=== PATIENT | female | born 1970 | race Caucasian/White ===

== ENCOUNTER → 2019-06-08 | Outpatient (CLI) | payer BC ==
[2019-06-08 10:20] LABS: HEMATOCRIT 41.5 % (36.0-47.0); HEMOGLOBIN 14.2 g/dL (12.0-15.5); MEAN CORPUSCULAR HEMOGLOBIN 30.4 pg (27.0-33.4); MEAN CORPUSCULAR HGB CONC 34.1 g/dL (32.0-36.0); MEAN CORPUSCULAR VOLUME 89 fl (80-97); PLATELET COUNT 239 10^3/uL (150-450); RED BLOOD COUNT 4.66 10^6/uL (3.72-5.28); RED CELL DISTRIBUTION WIDTH 13.7 % (11.5-14.0); WHITE BLOOD COUNT 7.8 10^3/uL (4.0-10.5)
[2019-06-08 10:59] LABS: ALBUMIN 3.9 g/dL (3.5-5.0); ALKALINE PHOSPHATASE 82 U/L (38-126); ANION GAP 10 (5-19); ASPARTATE AMINO TRANSFERASE 21 U/L (14-36); BILIRUBIN,DIRECT 0.3 mg/dL (0.0-0.4); BILIRUBIN,TOTAL 0.4 mg/dL (0.2-1.3); BLOOD UREA NITROGEN 21 mg/dL (7-20); CARBON DIOXIDE 23 mmol/L (22-30); CHLORIDE 109 mmol/L (98-107); CHOLESTEROL 234.43 mg/dL (0-200); GLUCOSE 87 mg/dL (75-110); POTASSIUM 4.2 mmol/L (3.6-5.0); TOTAL PROTEIN 7.1 g/dL (6.3-8.2); TRIGLYCERIDES 101 mg/dL (<150)
[2019-06-08 11:10] LABS: DIRECT LDL 156 mg/dL (<100)
[2019-06-08 11:11] LABS: FREE T4 (FREE THYROXINE) 0.89 ng/dL (0.78-2.19)
[2019-06-08 11:25] LABS: THYROID STIMULATING HORMONE 1.76 uIU/mL (0.47-4.68)
== END ==
LOC: OD 09:15
PROVIDERS: ATTEND Physician Assistant
DX: E03.9 Hypothyroidism, unspecified (principal); F43.21 Adjustment disorder with depressed mood; D51.8 Other vitamin B12 deficiency anemias; R53.83 Other fatigue
CPT/HCPCS: 36415; 80053; 80061; 83036; 84439; 84443; 85027

== ENCOUNTER 2019-09-02 16:29 | Observation (INO) | payer BC ==
--- NOTE | 2019-09-02 17:03 | ER Document Report ---
ED Medical Screen (RME) - General Chief Complaint: Abdominal Pain Stated Complaint: ABDOMINAL PAIN Time Seen by Provider: 09/02/19 16:59 Primary Care Provider: EAMON VILLEDA CNM [Primary Care Provider] - Follow up as needed Mode of Arrival: Ambulatory Information source: Patient Notes: 48-year-old female presents with complaints of right-sided abdominal pain nausea vomiting diarrhea that started approximately 10:00 today. She took some Phenergan without relief of symptoms. She still has her gallbladder. No complaints of fever. 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 No known COVID exposure. I have greeted and performed a rapid initial assessment of this patient. A comprehensive ED assessment and evaluation of the patient, analysis of test results and completion of the medical decision making process will be conducted by additional ED providers. TRAVEL OUTSIDE OF THE [place] IN LAST 30 DAYS: No - Related Data Allergies/Adverse Reactions: No Known Allergies Allergy (Unverified 09/02/19 16:56) Physical Exam - Vital signs Vitals: Temp Pulse Resp BP Pulse Ox 98.9 F 84 16 146/65 H 98 09/02/19 16:41 09/02/19 16:41 09/02/19 16:41 09/02/19 16:41 09/02/19 16:41 Course - Vital Signs Vital signs: Temp Pulse Resp BP Pulse Ox 98.9 F 84 16 146/65 H 98 09/02/19 16:41 09/02/19 16:41 09/02/19 16:41 09/02/19 16:41 09/02/19 16:41 Doctor's Discharge - Discharge Referrals: EAMON VILLEDA CNM [Primary Care Provider] - Follow up as needed
[2019-09-02 17:26] LABS: ABSOLUTE BASOPHILS # (AUTO) 0.1 10^3/uL (0.0-0.2); ABSOLUTE MONOCYTES (AUTO) 0.5 10^3/uL (0.1-1.4); ABSOLUTE NEUT (AUTO) 16.5 10^3/uL (1.7-8.2); BASOPHILS % (AUTO) 0.6 % (0-2); EOSINOPHILS % (AUTO) 0.1 % (0-6); HEMATOCRIT 44.9 % (36.0-47.0); HEMOGLOBIN 15.2 g/dL (12.0-15.5); LYMPHOCYTES % (AUTO) 5.3 % (13-45); MEAN CORPUSCULAR HEMOGLOBIN 30.3 pg (27.0-33.4); MEAN CORPUSCULAR HGB CONC 33.8 g/dL (32.0-36.0); MEAN CORPUSCULAR VOLUME 90 fl (80-97); MONOCYTES % (AUTO) 2.8 % (3-13); PLATELET COUNT 281 10^3/uL (150-450); RED BLOOD COUNT 5.01 10^6/uL (3.72-5.28); RED CELL DISTRIBUTION WIDTH 14.5 % (11.5-14.0); SEGMENTED NEUTROPHILS % (AUTO) 91.2 % (42-78); TOTAL CELLS COUNTED % (AUTO) 100 %; WHITE BLOOD COUNT 18.1 10^3/uL (4.0-10.5)
[2019-09-02 17:27] LABS: APPEARANCE,URINE CLEAR; BILIRUBIN,URINE NEGATIVE (NEGATIVE); COLOR,URINE YELLOW; GLUCOSE, URINE NEGATIVE (NEGATIVE); KETONES,URINE NEGATIVE (NEGATIVE); LEUKOCYTE ESTERASE,URINE NEGATIVE (NEGATIVE); NITRITE,URINE NEGATIVE (NEGATIVE); PROTEIN,URINE NEGATIVE (NEGATIVE); URINE SPECIFIC GRAVITY 1.021; UROBILINOGEN,URINE NEGATIVE mg/dL (<2.0)
[2019-09-02 17:44] LABS: ALBUMIN 4.4 g/dL (3.5-5.0); ALKALINE PHOSPHATASE 102 U/L (38-126); ANION GAP 8 (5-19); ASPARTATE AMINO TRANSFERASE 21 U/L (14-36); BILIRUBIN,TOTAL 0.5 mg/dL (0.2-1.3); BLOOD UREA NITROGEN 10 mg/dL (7-20); CALCIUM 9.2 mg/dL (8.4-10.2); CARBON DIOXIDE 26 mmol/L (22-30); CHLORIDE 103 mmol/L (98-107); GLUCOSE 130 mg/dL (75-110); TOTAL PROTEIN 7.6 g/dL (6.3-8.2)
[2019-09-02 17:45] LABS: POTASSIUM 4.3 mmol/L (3.6-5.0)
--- NOTE | 2019-09-02 18:25 | RADIOLOGY REPORT (SQ) ---
EXAM DESCRIPTION: U/S ABDOMEN LIMITED W/O DOP IMAGES COMPLETED DATE/TIME: 09/02/2019 6:16 pm REASON FOR STUDY: RIGHT SIDE ABD PAIN N/V/D COMPARISON: None. TECHNIQUE: Dynamic and static grayscale images acquired of the abdomen and recorded on PACS. Additio lizzy selected color Doppler and spectral images recorded. LIMITATIONS: None. FINDINGS: PANCREAS: No masses. Visualized pancreatic duct normal caliber. LIVER: No masses. Echotexture normal. LIVER VASCULATURE: Normal directional flow of the main portal vein and hepatic veins. GALLBLADDER: No stones. Normal wall thickness. No pericholecystic fluid. ULTRASOUND-DETECTED CHAN'S SIGN: Negative. INTRAHEPATIC DUCTS AND COMMON DUCT: CBD and intrahepatic ducts normal caliber. No filling defects. INFERIOR VENA CAVA: Normal flow. AORTA: No aneurysm. RIGHT KIDNEY: Normal size. Normal echogenicity. No solid or suspicious masses. No hydronephrosis. No calcifications. PERITONEAL AND RIGHT PLEURAL SPACE: No ascites or effusions. OTHER: No other significant findings. IMPRESSION: NORMAL RIGHT UPPER QUADRANT ULTRASOUND. TECHNICAL DOCUMENTATION: JOB ID: [id number] 2010 [employer]- All Rights Reserved Reading location - IP/workstation name: [email or web address]
[2019-09-02] MEDS ORDERED: RINGERS SOLUTION,LACTATED 1,000 ML IV ONE (19:03)
[2019-09-02] MEDS ORDERED: MORPHINE SULFATE 10 MG/ML INJ IV ONE ×2 (19:04→20:59)
[2019-09-02] MEDS ORDERED: ONDANSETRON HCL INJ/PF 4 MG/2 ML SDV IV ONE (19:04)
--- NOTE | 2019-09-02 19:04 | ER Document Report ---
ED GI/ - General Chief Complaint: Flank Pain Stated Complaint: ABDOMINAL PAIN Time Seen by Provider: 09/02/19 16:59 Primary Care Provider: EAMON VILLEDA CNM [CERTIFIED NURSE LOG DECKMAN] - Follow up as needed Mode of Arrival: Ambulatory Information source: Patient Notes: 48-year-old female past medical history significant for migraines, hypothyroidism, depression presents to the emergency room with sudden onset of right upper quadrant abdominal pain that started around 10 AM this morning. Complains of nausea with vomiting x1 and loose stools but denies diarrhea. De scribes the pain as sharp and constant improved a little bit with a heating pad. Denied fevers. Denies urinary symptoms. No medications for symptoms. No COVID exposure, no COVID symptoms. TRAVEL OUTSIDE OF THE [place] IN LAST 30 DAYS: No - Related Data Allergies/Adverse Reactions: No Known Allergies Allergy (Unverified 09/02/19 16:56) Past Medical History - General Information source: Patient - Social History Smoking Status: Current Every Day Smoker Chew tobacco use (# tins/day): No Frequency of alcohol use: Occasional Drug Abuse: None Lives with: Family Family History: Reviewed & Not Pertinent Patient has homicidal ideation: No Neurological Medical History: Reports: Hx Migraine Endocrine Medical History: Reports: Hx Hypothyroidism Psychiatric Medical History: Reports: Hx Depression Physical Exam - Vital signs Vitals: Temp 98.9 F 09/02/19 16:29 - General General appearance: Appears well, Alert In distress: Moderate - HEENT Head: Normocephalic, Atraumatic Eyes: Normal Pupils: PERRL - Respiratory Respiratory status: No respiratory distress Chest status: Nontender Breath sounds: Normal Chest palpation: Normal - Cardiovascular Rhythm: Regular Heart sounds: Normal auscultation Murmur: No - Abdominal Inspection: Normal Distension: No distension Bowel sounds: Normal Tenderness: Tender - There is tenderness noted to the right upper as well as the right lower quadrant pain with rebound tenderness, no guarding., McBurney's point, Rebound. No: Guarding Organomegaly: No organomegaly - Back Back: Normal. No: CVA tenderness - Neurological Neuro grossly intact: Yes Cognition: Normal Orientation: AAOx4 Alok Coma Scale Eye Opening: Spontaneous Alok Coma Scale Verbal: Oriented Rougon Coma Scale Motor: Obeys Commands Rougon Coma Scale Total: 15 Speech: Normal Motor strength normal: LUE, RUE, LLE, RLE Sensory: Normal - Skin Skin Temperature: Warm Skin Moisture: Dry Skin Color: Normal Course - Re-evaluation Re-evalutation: 09/02/2019 1905 reviewed lab and ultrasound results with patient. Patient with guarding and rebound to the right lower quadrant. Persistent pain. Will order morphine, Zofran, IV fluids, CT abdomen and pelvis with IV and p.o. contrast. 09/02/19 22:55 Patient is resting comfortably decreased pain. Reviewed all test results with patient. Aware of need for admission. Patient is agreeable to admission. 09/02/19 22:56 - Vital Signs Vital signs: Temp Pulse Resp BP Pulse Ox 101.4 F H 96 18 129/64 H 94 09/02/19 23:21 09/02/19 23:21 09/02/19 23:21 09/02/19 23:21 09/02/19 23:21 - Laboratory Result Diagrams: 09/02/19 17:15 09/02/19 17:15 Laboratory results interpreted by me: 09/02/19 09/02/19 17:15 17:15 WBC 18.1 H RDW 14.5 H Lymph % (Auto) 5.3 L [place] % (Auto) 2.8 L Absolute Neuts (auto) 16.5 H Seg Neutrophils % 91.2 H Sodium 136.9 L Glucose 130 H - Consults Dr. Trinidad Time consulted: 23:05 Reason for consultation: 09/02/19 23:05 admission for acute appendicitis Consulted provider: will come to ER Discharge - Discharge Clinical Impression: Acute appendicitis Qualifiers: Acute appendicitis type: unspecified acute appendicitis type Qualified Code(s): K35.80 - Unspecified acute appendicitis Disposition: ADMITTED OBSERVATION Admitting Provider: Surgicalist - Dr. Trinidad Unit Admitted: Medical Floor Referrals: EAMON VILLEDA CNM [CERTIFIED NURSE LOG DECKMAN] - Follow up as needed
[2019-09-02] MEDS ORDERED: METOCLOPRAMIDE HCL INJ/PF 10 MG/2 ML SDV IV ONE (21:00)
--- NOTE | 2019-09-02 22:29 | RADIOLOGY REPORT (SQ) ---
EXAM DESCRIPTION: CT ABDOMEN PELVIS WITH IV CONTRAST COMPLETED DATE/TME: 09/02/2019 00:00 CLINICAL HISTORY: 48 years, Female, abdominal pain COMPARISON: None. TECHNIQUE: Contrast enhanced CT of the abdomen/pelvis was acquired. Images were obtained after the uneventful administration of 100 mL of Omnipaque 350 intravenous contrast. Images stored on PACS. All CT scanners at this facility use dose modulation, iterative reconstruction, and/or weight based dosing when appropriate to reduce radiation dose to as low as reasonably achievable (ALARA). [facility]: Dose Right [facility]: CareDose [facility]: Dose Right [facility]: Teradose 4D [facility]: [employer] LIMITATIONS: None. FINDINGS: Limited evaluation of the lower chest reveals bands of opacity located about both lung bases, indicating areas of atelectasis or scar. The liver is diffusely low in attenuation relative to the spleen. No focal liver lesions are appreciated. Spleen, pancreas, gallbladder, and both adrenal glands appear normal. Both kidneys enhance symmetrically. No hydronephrosis or hydroureter. The urinary bladder is partially collapsed, thus its evaluation is limited. Uterus and left ovary appear normal. The right ovary contains a fluid density lesion on image 71 of series 3. It measures 2.5 x 1.9 cm in size. Small and large bowel appear normal in caliber. No evidence of bowel obstruction. The appendix is dilated and fluid-filled, especially about the appendiceal tip. Associated adjacent inflammatory stranding is noted. No evidence of bowel obstruction. Vascular structures opacify with contrast normally. No lymphadenopathy is appreciated. There are no drainable fluid collections. No extraluminal free air is identified. Bone windows show no destructive osseous lesions. IMPRESSION: Findings are compatible with acute, uncomplicated appendicitis. Suspect hepatic steatosis. 2.5 cm benign appearing ovarian cyst. No follow-up imaging is recommended. Reference: J Am Diamond Radiol 2013;10:675-681 TECHNICAL DOCUMENTATION: Quality ID # 436: Final reports with documentation of one or more dose reduction techniques (e.g., Automated exposure control, adjustment of the mA and/or kV according to patient size, use of iterative reconstruction technique) copyright 2011 [employer]- All Rights Reserved
[2019-09-02] MEDS ORDERED: ACETAMINOPHEN 325 MG TABLET PO ONE (23:18)
[2019-09-02] MEDS ORDERED: PIPERACILLIN/TAZOBACTAM 3.375 GM VIAL IV ONE (23:23)
--- NOTE | 2019-09-03 00:02 | PDOC H&P ---
History of Present Illness Admission Date/PCP: LALITA CORTEZ PA-C Patient complains of: abdominal pain History of Present Illness: JOSE AGUILA is a 48 year old -[id number] female past medical history significant for migraines, hypothyroidism, depression presents to the emergency room with sudden onset of right upper quadrant abdominal pain that started around 10 AM this morning. Complains of nausea with vomiting x1 and loose stools but denies diarrhea. Describes the pain as sharp and constant improved a little bit with a heating pad. Denied fevers. Denies urinary symptoms. No medications for symptoms. No COVID exposure, no COVID symptoms Past Medical History Neurological Medical History: Reports: Migraine Endocrine Medical History: Reports: Hypothyroidism Psychiatric Medical History: Reports: Depression Past Surgical History Past Surgical History: Reports: Other - breast rediuction Social History Lives with: Family Smoking Status: Current Every Day Smoker Electronic Cigarette use?: No Family History Family History: Reviewed & Not Pertinent Parental Family History Reviewed: No Children Family History Reviewed: NA Sibling(s) Family History Reviewed.: NA Medication/Allergy Allergies/Adverse Reactions: No Known Allergies Allergy (Unverified 09/02/19 16:56) Review of Systems Constitutional: ABSENT: as per HPI, anorexia, chills, fatigue, fever(s), headache(s), night sweats, weakness, weight gain, weight loss, other Eyes: ABSENT: as per HPI, visual disturbances, other Ears: ABSENT: as per HPI, hearing changes, other Nose, Mouth, and Throat: ABSENT: as per HPI, headache(s), mouth pain, sore throat, vertigo, other Breasts: ABSENT: as per HPI, other Cardiovascular: ABSENT: as per HPI, chest pain, dyspnea on exertion, edema, orthropnea, palpitations, other Respiratory: ABSENT: as per HPI, cough, dyspnea, hemoptysis, sputum, other Gastrointestinal: PRESENT: abdominal pain, nausea Genitourinary: ABSENT: as per HPI, difficulty urinating, dysuria, hematuria, nocturia, other Musculoskeletal: ABSENT: as per HPI, back pain, deformity, joint swelling, muscle weakness, other Integumentary: ABSENT: as per HPI, diaphoresis, erythema, lesions, pruritus, rash, wounds, other Neurological: ABSENT: as per HPI, abnormal gait, abnormal movements, abnormal speech, confusion, convulsions, dizziness, focal weakness, frequent falls, lack of coordination, memory loss, numbness, paresthesias, restless legs, syncope, tingling, tremor(s), vertigo, weakness, other Psychiatric: ABSENT: as per HPI, anxiety, depression, hallucinations, homidical ideation, suicidal ideation, other Endocrine: ABSENT: as per HPI, cold intolerance, flushing, heat intolerance, menstrual abnormalities, polydipsia, polyphagia, polyuria, other Hematologic/Lymphatic: ABSENT: as per HPI, easy bleeding, easy bruising, lymphadenopathy, other Physical Exam Vital Signs: Temp Pulse Resp BP Pulse Ox 101.4 F H 96 18 129/64 H 94 09/02/19 23:21 09/02/19 23:21 09/02/19 23:21 09/02/19 23:21 09/02/19 23:21 Intake & Output 09/01/19 09/02/19 09/03/19 06:59 06:59 06:59 Intake Total 1000 Balance 1000 Weight 85.593 kg General appearance: PRESENT: no acute distress Head exam: PRESENT: normocephalic Eye exam: PRESENT: EOMI Ear exam: PRESENT: normal external ear exam Mouth exam: PRESENT: moist Throat exam: ABSENT: post pharyngeal erythema, tonsillar erythema, tonsillar exudate, tonsillogmegaly, other Respiratory exam: PRESENT: clear to auscultation diane Cardiovascular exam: PRESENT: RRR Pulses: PRESENT: normal radial pulses, normal femoral pulses Vascular exam: PRESENT: normal capillary refill Breast: PRESENT: Normal GI/Abdominal exam: PRESENT: tenderness - tender with rebound in rlq Rectal exam: PRESENT: deferred Extremities exam: PRESENT: full ROM Musculoskeletal exam: PRESENT: full ROM Neurological exam: PRESENT: alert, awake, oriented to person, oriented to place Psychiatric exam: PRESENT: appropriate affect Skin exam: PRESENT: dry Results Laboratory Results: 09/02/19 17:15 09/02/19 17:15 09/02/19 09/02/19 09/02/19 17:15 17:15 17:15 WBC 18.1 H RBC 5.01 Hgb 15.2 Hct 44.9 MCV 90 MCH 30.3 MCHC 33.8 RDW 14.5 H Plt Count 281 Seg Neutrophils % 91.2 H Sodium 136.9 L Potassium 4.3 Chloride 103 Carbon Dioxide 26 Anion Gap 8 BUN 10 Creatinine 0.82 Est GFR ( Amer) > 60 Glucose 130 H Calcium 9.2 Total Bilirubin 0.5 AST 21 Alkaline Phosphatase 102 Total Protein 7.6 Albumin 4.4 Lipase 74.6 Urine Color YELLOW Urine Appearance CLEAR Urine pH 7.0 Ur Specific [place] 1.021 Urine Protein NEGATIVE Urine Glucose (UA) NEGATIVE Urine Ketones NEGATIVE Urine Blood NEGATIVE Urine Nitrite NEGATIVE Ur Leukocyte Esterase NEGATIVE Urine WBC (Auto) 0 Urine RBC (Auto) 3 Impressions: Abdomen/Pelvis CT 09/02/19 00:00 IMPRESSION: Findings are compatible with acute, uncomplicated appendicitis. Suspect hepatic steatosis. 2.5 cm benign appearing ovarian cyst. No follow-up imaging is recommended. Reference: J Am Diamond Radiol 2013;10:675-681 TECHNICAL DOCUMENTATION: Quality ID # 436: Final reports with documentation of one or more dose reduction techniques (e.g., Automated exposure control, adjustment of the mA and/or kV according to patient size, use of iterative reconstruction technique) copyright 2011 [employer]- All Rights Reserved Abdomen Ultrasound 09/02/19 17:01 IMPRESSION: NORMAL RIGHT UPPER QUADRANT ULTRASOUND. Assessment & Plan - Plan Summary Plan Summary: impression, acute appendicitis plan for laparoscopic appendectomy risks roz discussed bleeding infection, injury to adjacent organs ureters, small bowel, colon need for additional surgery poss pt understnds and agrees to proceed.
[2019-09-03] MEDS ORDERED: BUPIVACAINE HCL 0.25 % INJ/PF (2.5 MG/1 ML) 30 ML VIAL ONE (00:45)
[2019-09-03] MEDS ORDERED: MIDAZOLAM 2 MG/2 ML INJ ONE (00:52)
[2019-09-03] MEDS ORDERED: ONDANSETRON HCL INJ/PF 4 MG/2 ML SDV ONE (00:52)
[2019-09-03] MEDS ORDERED: DEXAMETHASONE SOD PHOSPHATE INJ 4 MG/1 ML VIAL ONE (00:52)
[2019-09-03] MEDS ORDERED: FENTANYL CITRATE INJ/PF 100 MCG/2 ML AMPUL ONE (00:52)
[2019-09-03] MEDS ORDERED: LIDOCAINE 2% INJ-PF (20 MG/ML) 10 ML AMPUL ONE (00:52)
[2019-09-03] MEDS ORDERED: HYDROMORPHONE HCL INJ/PF 2 MG/ML AMPULE ONE (00:53)
[2019-09-03] MEDS ORDERED: PROPOFOL INJ 200 MG/20 ML VIAL IV ONE (00:53)
[2019-09-03] MEDS: BUPIVACAINE HCL 0.5%-EPI 1:200000 INJ/PF 30 ML VIAL ONE ×2 (02:16→02:45)
--- NOTE | 2019-09-03 03:00 | Operative Report ---
Nonrecallable Operative Report DATE OF SURGERY: 09/03/19 PREOPERATIVE DIAGNOSIS: acute appendicitis POSTOPERATIVE DIAGNOSIS: acute appendicitis OPERATION: laparoscopic appendectomy SURGEON: ZACH DIAMOND ANESTHESIA: GA TISSUE REMOVED OR ALTERED: appendix COMPLICATIONS: none ESTIMATED BLOOD LOSS: 10cc INTRAOPERATIVE FINDINGS: acute suppurative appendicitis PROCEDURE: After appropriate timeout site verification the procedure commenced. Abdomen was prepped and draped in usual sterile fashion. The varies needle was placed into the umbilicus and the abdomen was insufflated 6 L of CO2 gas. Infraumbilical 5 mm incision was made with a 15 blade and a 5 mm port placed in the abdominal cavity intra-abdominal visualization revealed no evidence of Veress needle trocar injury to additional ports a suprapubic 5 mm port in left lower quadrant 10 mm port placed under direct vision the pedicles then identified and visualized. Was placed on traction and noted to be acutely separative. We took down the mesoappendix with one firing the Endo INGA stapler with a vascular load and then we came across the base the appendix on the cecum with one firing the Endo INGA stapler with a blue load. Placed appendix in an Endobag and removed through the left lower quadrant port site. The right lower quadrant and pelvis were irrigated normal saline suctioned dry. Hemostasis was noted to be intact. The left lower quadrant 10 mm fascial incision was closed with 0 Vicryl. We then removed the other 2 ports. Closed the skin incisions with with intracuticular 4-0 Biosyn Steri-Strips completed the procedure. Estimated blood loss was less than 10 cc sponge needle counts correct x2 the patient was then transferred recovery in stable condition
[2019-09-03] MEDS ORDERED: POTASSI CL 20 MEQ/1/2NS 1L 20 MEQ/1,000 ML RTUINJ IV PRN (03:06)
[2019-09-03] MEDS ORDERED: MORPHINE SULFATE 10 MG/ML INJ IV PRN (03:06)
[2019-09-03] MEDS ORDERED: ONDANSETRON HCL INJ/PF 4 MG/2 ML SDV IV PRN (03:06)
[2019-09-03] MEDS ORDERED: FAMOTIDINE INJ/PF 20 MG/2 ML SDV IV SCH (10:00)
[2019-09-03] MEDS ORDERED: GLYCOPYRROLATE 1 MG/5 ML VIAL ONE (10:09)
[2019-09-03] MEDS ORDERED: KETOROLAC TROMETHAMINE 60 MG/2 ML SDV ONE (10:09)
[2019-09-03] MEDS ORDERED: NEOSTIGMINE METHYLSULFATE 10 MG/10 ML VIAL ONE (10:09)
[2019-09-03] MEDS ORDERED: PHENYLEPHRINE HCL INJ/PF 10 MG/1 ML SDV ONE (10:09)
[2019-09-03 11:26] VITALS: BP 93/54
--- NOTE | 2019-09-03 11:39 | PDOC DISCHARGE SUMMARY ---
General - Admit/Disc Date/PCP Admission Date/Primary Care Provider: 09/03/19 00:03 LALITA CORTEZ PA-C Discharge Date: 09/03/19 - Discharge Diagnosis Final Diagnosis: appendicitis - Assessment Summary: Patient admitted 1 day prior for symptoms of acute appendicitis underwent laparoscopic appendectomy late in the evening on the day of admission. She tolerated the procedure well the following morning she is afebrile with stable vital signs tolerating a full liquid diet and ready for discharge home. She will be given a follow-up appointment in 7 to 10 days in surgical clinic. - Additional Information Resuscitation Status: Full Code Discharge Activity: Activity As Tolerated, Balance Activity w/Rest, No Lifting O dulce maria 10 Pounds, Slowly Increase Activity, No tub bath Referrals: EAMON VILLEDA CNM [CERTIFIED NURSE ENTERTAINMENT MANAGER] - Follow up as needed Prescriptions: Hydrocodone/Acetaminophen [[place] 10-325 Tablet] 1 each PO Q6HP PRN #20 tablet PRN Reason: Home Medications: Hydrocodone/Acetaminophen [[place] 10-325 Tablet] 1 each PO Q6HP PRN #20 tablet 09/03/19 Levothyroxine Sodium [Synthroid 0.05 mg Tablet] 1 tab PO QAM 09/03/19 Sertraline HCl [Zoloft 50 mg Tablet] 100 mg PO Q12 09/03/19 Topiramate [Topamax 25 mg Tablet] 50 mg PO Q12 09/03/19 History of Present Illiness History of Present Illness: JOSE AUGILA is a 48 year old [id number] female past medical history significant for migraines, hypothyroidism, depression presents to the emergency room with sudden onset of right upper quadrant abdominal pain that started around 10 AM this morning. Complains of nausea with vomiting x1 and loose stools but denies diarrhea. Describes the pain as sharp and constant improved a little bit with a heating pad. Denied fevers. Denies urinary symptoms. No medications for symptoms. No COVID exposure, no COVID symptoms Physical Exam Vital Signs: Temp Pulse Resp BP Pulse Ox 98.6 F 67 16 93/54 L 96 09/03/19 11:24 09/03/19 11:24 09/03/19 11:24 09/03/19 11:24 09/03/19 11:24 Intake & Output 09/02/19 09/03/19 09/04/19 06:59 06:59 06:59 Intake Total 2690 Output Total 355 Balance 2335 Weight 85.6 kg Results Laboratory Results: WBC 18.1 10^3/uL (4.0-10.5) H 09/02/19 17:15 RBC 5.01 10^6/uL (3.72-5.28) 09/02/19 17:15 Hgb 15.2 g/dL (12.0-15.5) 09/02/19 17:15 Hct 44.9 % (36.0-47.0) 09/02/19 17:15 MCV 90 fl (80-97) 09/02/19 17:15 MCH 30.3 pg (27.0-33.4) 09/02/19 17:15 MCHC 33.8 g/dL (32.0-36.0) 09/02/19 17:15 RDW 14.5 % (11.5-14.0) H 09/02/19 17:15 Plt Count 281 10^3/uL (150-450) 09/02/19 17:15 Lymph % (Auto) 5.3 % (13-45) L 09/02/19 17:15 [place] % (Auto) 2.8 % (3-13) L 09/02/19 17:15 Eos % (Auto) 0.1 % (0-6) 09/02/19 17:15 Baso % (Auto) 0.6 % (0-2) 09/02/19 17:15 Absolute Neuts (auto) 16.5 10^3/uL (1.7-8.2) H 09/02/19 17:15 Absolute Lymphs (auto) 1.0 10^3/uL (0.5-4.7) 09/02/19 17:15 Absolute Monos (auto) 0.5 10^3/uL (0.1-1.4) 09/02/19 17:15 Absolute Eos (auto) 0.0 10^3/uL (0.0-0.6) 09/02/19 17:15 Absolute Basos (auto) 0.1 10^3/uL (0.0-0.2) 09/02/19 17:15 Seg Neutrophils % 91.2 % (42-78) H 09/02/19 17:15 Sodium 136.9 mmol/L (137-145) L 09/02/19 17:15 Potassium 4.3 mmol/L (3.6-5.0) 09/02/19 17:15 Chloride 103 mmol/L (98-107) 09/02/19 17:15 Carbon Dioxide 26 mmol/L (22-30) 09/02/19 17:15 Anion Gap 8 (5-19) 09/02/19 17:15 BUN 10 mg/dL (7-20) 09/02/19 17:15 Creatinine 0.82 mg/dL (0.52-1.25) 09/02/19 17:15 Est GFR ( Amer) > 60 (>60) 09/02/19 17:15 Est GFR (MDRD) Non-Af > 60 (>60) 09/02/19 17:15 Glucose 130 mg/dL (75-110) H 09/02/19 17:15 Calcium 9.2 mg/dL (8.4-10.2) 09/02/19 17:15 Total Bilirubin 0.5 mg/dL (0.2-1.3) 09/02/19 17:15 Direct Bilirubin 0.0 mg/dL (0.0-0.4) 09/02/19 17:15 Neonat Total Bilirubin Not Reportable 09/02/19 17:15 Neonat Direct Bilirubin Not Reportable 09/02/19 17:15 Neonat Indirect Bili Not Reportable 09/02/19 17:15 AST 21 U/L (14-36) 09/02/19 17:15 ALT 19 U/L (<35) 09/02/19 17:15 Alkaline Phosphatase 102 U/L (38-126) 09/02/19 17:15 Total Protein 7.6 g/dL (6.3-8.2) 09/02/19 17:15 Albumin 4.4 g/dL (3.5-5.0) 09/02/19 17:15 Lipase 74.6 U/L (23-300) 09/02/19 17:15 Urine Color YELLOW 09/02/19 17:15 Urine Appearance CLEAR 09/02/19 17:15 Urine pH 7.0 (5.0-9.0) 09/02/19 17:15 Ur Specific [place] 1.021 09/02/19 17:15 Urine Protein NEGATIVE mg/dL (NEGATIVE) 09/02/19 17:15 Urine Glucose (UA) NEGATIVE mg/dL (NEGATIVE) 09/02/19 17:15 Urine Ketones NEGATIVE mg/dL (NEGATIVE) 09/02/19 17:15 Urine Blood NEGATIVE (NEGATIVE) 09/02/19 17:15 Urine Nitrite NEGATIVE (NEGATIVE) 09/02/19 17:15 Urine Bilirubin NEGATIVE (NEGATIVE) 09/02/19 17:15 Urine Urobilinogen NEGATIVE mg/dL (<2.0) 09/02/19 17:15 Ur Leukocyte Esterase NEGATIVE (NEGATIVE) 09/02/19 17:15 Urine WBC (Auto) 0 /HPF 09/02/19 17:15 Urine RBC (Auto) 3 /HPF 09/02/19 17:15 Urine Bacteria (Auto) TRACE /HPF 09/02/19 17:15 Squamous Epi Cells Auto 1 /HPF 09/02/19 17:15 Urine Mucus (Auto) FEW /LPF 09/02/19 17:15 Urine Ascorbic Acid NEGATIVE (NEGATIVE) 09/02/19 17:15 Urine HCG, Qual NEGATIVE (NEGATIVE) 09/02/19 17:15 Impressions: Abdomen/Pelvis CT 09/02/19 00:00 IMPRESSION: Findings are compatible with acute, uncomplicated appendicitis. Suspect hepatic steatosis. 2.5 cm benign appearing ovarian cyst. No follow-up imaging is recommended. Reference: J Am Diamond Radiol 2013;10:675-681 TECHNICAL DOCUMENTATION: Quality ID # 436: Final reports with documentation of one or more dose reduction techniques (e.g., Automated exposure control, adjustment of the mA and/or kV according to patient size, use of iterative reconstruction technique) copyright 2011 [employer]- All Rights Reserved Abdomen Ultrasound 09/02/19 17:01 IMPRESSION: NORMAL RIGHT UPPER QUADRANT ULTRASOUND.
== END 2019-09-03 12:34 | disposition home or self-care (01) ==
LOC: ER 16:29 → EH 09-03 00:03 → 4W 09-03 04:14
PROVIDERS: ADMIT Surgery; ATTEND Surgery
DX: K35.80 Unspecified acute appendicitis (principal); E03.9 Hypothyroidism, unspecified; F32.9 Major depressive disorder, single episode, unspecified; F17.200 Nicotine dependence, unspecified, uncomplicated; Z79.890 Hormone replacement therapy; Z79.899 Other long term (current) drug therapy
CPT/HCPCS: 44970; 96376; 99285; 96361; 96375; 96365; 36415; 83690; 85025; 81025; 80053; 81001; 88304 ×2; 76705; 74177; 94799; 99140; 00840; J2250; J3490 ×3; J1100; J3480; J1885; J3010; J2765; J2270; J2710; J1170; J2370; J2405 ×2; J7120; J2704; S0028; J2543; 840